=== PATIENT | male | born 1990 | race Caucasian/White ===

== ENCOUNTER 2020-12-04 00:06 | Emergency (ER) | payer BC ==
--- NOTE | 2020-12-04 00:36 | EDM.PDOC ---
ED HPI GENERAL MEDICAL PROBLEM - General Chief Complaint: Chest Pain Stated Complaint: CHEST PAIN AND COUGH Time Seen by Provider: 12/04/20 00:16 Source of Information: Reports: Patient History Limitations: Reports: No Limitations - History of Present Illness INITIAL COMMENTS - FREE TEXT/NARRATIVE: Mr. Newell is a very pleasant 30-year-old gentleman who now presents the ED stat ing that he has had a harsh, nonproductive cough for the past 12 to 15 days, with some associated dyspnea on exertion and slight dyspnea at rest. No recent fever. He then developed left-sided chest pain which he describes as a "nuisance" along with lower back pain, about 12 hours ago. He indicates the pain to be inferior to his left pectoralis muscle. Both pains are constant and he has not identified any modifiers. He has not taken any [id number] or home remedies to address any of his symptoms. Here in the ED, the patient's initial BP is found to be elevated at 167/110, otherwise, he is afebrile, saturating 98% on room air. He appears to be comfortable, in no acute distress. The patient denies having a recent fever, chills, sore throat, ear pain, nasal or sinus congestion, palpitations, nausea, vomiting, constipation, diarrhea, abdominal pain, urinary symptoms, recent weight gain or weight loss, recent bloody bowel movements or black bowel movements, recent joint aches, headaches, or rashes. The patient does not have a PCP. He has received 2 COVID vaccinations. - Related Data Allergies Allergy/AdvReac Type Severity Reaction Status Date / Time latex Allergy Hives Verified 12/04/20 00:36 Home Meds: Home Meds Orphenadrine [Norflex] 1 tab PO Q12H PRN #14 tab.er 12/04/20 [Rx] Sertraline HCl [Zoloft] 100 mg PO DAILY 12/04/20 [History] Past Medical History Cardiovascular History: Reports: High Cholesterol (untreated) Psychiatric History: Reports: Anxiety - Past Surgical History HEENT Surgical History: Reports: Oral Surgery (dental extractions) Social & Family History - Tobacco Use Tobacco Use Status *Q: Never Tobacco User - Alcohol Use Alcohol Use History: Yes Alcohol Use Frequency: Socially (occasionally to excess) - Recreational Drug Use Recreational Drug Use: No - Living Situation & Occupation Living situation: Reports: Single, Alone 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 ED EXAM, GENERAL - Physical Exam Exam: See Below Exam Limited By: No Limitations General Appearance: Alert, WD/WN, No Apparent Distress Eye Exam: Bilateral Eye: EOMI, Normal Inspection Ears: Normal External Exam, Hearing Grossly Normal Nose: Normal Inspection Throat/Mouth: Normal Inspection, Normal Lips, Normal Voice, No Airway Compromise Head: Atraumatic, Normocephalic Neck: Normal Inspection, Full Range of Motion Respiratory/Chest: No Respiratory Distress, Lungs Clear, Normal Breath Sounds, No Accessory Muscle Use, Other (Reproducible tenderness to palpation of the left anterolateral ribs inferior to the left pectoralis muscle). No: Decreased Breath Sounds, Crackles, Rhonchi, Wheezing, Stridor, Pleural Rub, Prolonged Expiration Cardiovascular: Normal Peripheral Pulses, Regular Rate, Rhythm, No Edema, No Gallop, No JVD, No Murmur, No Rub Peripheral Pulses: 3+: Radial (L), Radial (R) GI/Abdominal: Normal Bowel Sounds, Soft, No Organomegaly, No Distention, No Abnormal Bruit, No Mass, Tender (Minimal, epigastric only. Nontender elsewhere.) Back Exam: Normal Inspection, Full Range of Motion, NT Extremities: Normal Inspection, Normal Range of Motion, No Pedal Edema, Normal Capillary Refill Neurological: Alert, Oriented, Normal Cognition, No Motor/Sensory Deficits Psychiatric: Normal Affect Skin Exam: Warm, Dry, Intact, Normal Color, No Rash #1 Interpretation EKG Date: 12/04/20 Time: 00:18 Rhythm: NSR Rate (Beats/Min): 77 [place]: Normal P-Wave: Present QRS: Other (Late transition) ST-T: Normal QT: Normal Comparison: NA - No Prior EKG Course - Vital Signs Last Recorded V/S: Last Vital Signs Temp 36.3 C 12/04/20 00:13 Pulse 84 12/04/20 00:13 Resp 19 12/04/20 00:13 BP 167/110 H 12/04/20 00:13 Pulse Ox 98 12/04/20 00:13 - Orders/Labs/Meds Orders: Active Orders 24 hr Category Date Time Status Chest 2V [CR] Stat Exams 12/04/20 00:31 Taken Labs: Laboratory Tests 12/04/20 12/04/20 12/04/20 Range/Units 00:36 00:44 00:44 WBC 12.13 H (4.23-9.07) K/mm3 RBC 4.98 (4.63-6.08) M/mm3 Hgb 17 (13.7-17.5) gm/dl Hct 45.4 (40.1-51.0) % MCV 91.2 (79.0-92.2) fl MCH 34.1 H (25.7-32.2) pg MCHC 37.4 H (32.2-35.5) g/dl RDW Std Deviation 39.0 (35.1-43.9) fL Plt Count 315 (163-337) K/mm3 MPV 9.2 L (9.4-12.3) fl Neutrophils % (Manual) 60 (40-60) % Band Neutrophils % 0 (0-10) % Lymphocytes % (Manual) 32 (20-40) % Atypical Lymphs % 0 % Monocytes % (Manual) 8 (2-10) % Eosinophils % (Manual) 0 L (0.8-7.0) % Basophils % (Manual) 0 L (0.2-1.2) Platelet Estimate Adequate RBC Morph Comment Normal D-Dimer, Quantitative (0.19-0.50) mg/L Sodium 138 (136-145) mEq/L Potassium 3.7 (3.5-5.1) mEq/L Chloride 100 (98-107) mEq/L Carbon Dioxide 25 (21-32) mEq/L Anion Gap 16.7 H (5-15) BUN 10 (7-18) mg/dL Creatinine 1.1 (0.7-1.3) mg/dL Est Cr Clr Drug Dosing 100.47 mL/min Estimated GFR (MDRD) > 60 (>60) mL/min BUN/Creatinine Ratio 9.1 L (14-18) Glucose 113 H (70-99) mg/dL Calcium 9.7 (8.5-10.1) mg/dL Total Bilirubin 0.8 (0.2-1.0) mg/dL AST 52 H (15-37) U/L ALT 97 H (16-63) U/L Alkaline Phosphatase 82 (46-116) U/L Troponin I < 0.017 (0.00-0.056) ng/mL C-Reactive Protein <0.2 (<1.0) mg/dL Total Protein 8.5 H (6.4-8.2) g/dl Albumin 4.6 (3.4-5.0) g/dl Globulin 3.9 gm/dL Albumin/Globulin Ratio 1.2 (1-2) Lipase 44 L (73-393) U/L SARS-CoV-2 RNA (VALDEZ) Negative (NEGATIVE) 12/04/20 Range/Units 00:44 WBC (4.23-9.07) K/mm3 RBC (4.63-6.08) M/mm3 Hgb (13.7-17.5) gm/dl Hct (40.1-51.0) % MCV (79.0-92.2) fl MCH (25.7-32.2) pg MCHC (32.2-35.5) g/dl RDW Std Deviation (35.1-43.9) fL Plt Count (163-337) K/mm3 MPV (9.4-12.3) fl Neutrophils % (Manual) (40-60) % Band Neutrophils % (0-10) % Lymphocytes % (Manual) (20-40) % Atypical Lymphs % % Monocytes % (Manual) (2-10) % Eosinophils % (Manual) (0.8-7.0) % Basophils % (Manual) (0.2-1.2) Platelet Estimate RBC Morph Comment D-Dimer, Quantitative 0.90 H (0.19-0.50) mg/L Sodium (136-145) mEq/L Potassium (3.5-5.1) mEq/L Chloride (98-107) mEq/L Carbon Dioxide (21-32) mEq/L Anion Gap (5-15) BUN (7-18) mg/dL Creatinine (0.7-1.3) mg/dL Est Cr Clr Drug Dosing mL/min Estimated GFR (MDRD) (>60) mL/min BUN/Creatinine Ratio (14-18) Glucose (70-99) mg/dL Calcium (8.5-10.1) mg/dL Total Bilirubin (0.2-1.0) mg/dL AST (15-37) U/L ALT (16-63) U/L Alkaline Phosphatase (46-116) U/L Troponin I (0.00-0.056) ng/mL C-Reactive Protein (<1.0) mg/dL Total Protein (6.4-8.2) g/dl Albumin (3.4-5.0) g/dl Globulin gm/dL Albumin/Globulin Ratio (1-2) Lipase (73-393) U/L SARS-CoV-2 RNA (VALDEZ) (NEGATIVE) Meds: Medications Discontinued Medications Generic Name Dose Route Start Last Admin Trade Name Aleksey PRN Reason Stop Dose Admin Ibuprofen 600 mg 12/04/20 01:43 12/04/20 01:55 Ibuprofen 600 Mg Tab PO 12/04/20 01:44 600 mg ONETIME ONE Administration Orphenadrine Citrate 100 mg 12/04/20 01:43 12/04/20 01:54 Orphenadrine 100 Mg Tab.Er PO 12/04/20 01:44 100 mg ONETIME STA Administration - Re-Assessments/Exams Free Text/Narrative Re-Assessment/Exam: 12/04/20 00:33 As above, the patient has had 12 to 15 days of a nonproductive cough, along with dyspnea on exertion and slight dyspnea at rest, then 12 hours of "nuisance" discomfort felt under his left pectoralis muscle, and lower back pain. No recent fever. The pain felt under his left pectoralis muscle is sometimes made worse when he coughs, and is reproducible on examination, otherwise, his physical exam is unremarkable. An ECG, obtained at triage, shows no ischemic changes. I have ordered a work-up that includes several blood tests, a swab for the SARS-CoV-2 virus, and a chest x-ray. 12/04/20 01:36 Two-view chest radiograph appears to be grossly normal. The cardiac silhouette is within normal limits. No pulmonary vascular congestion. No pleural effusions. No focal infiltrate. No pneumothorax. Formal read per the Radiologist pending. The patient's CBC is remarkable for mild leukocytosis of 12.13, but with 0% bandemia, and the remainder of his CBC being unremarkable. His CMP is remarkable for slight hyperglycemia of 113, and an AST/ALT slightly elevated at 52/97, respectively, and the remainder of his CMP being unremarkable. His lipase level is within normal limits at 44. His CRP is undetectably low. His troponin is undetectably low. His D-dimer is mildly elevated at 0.90. His swab for the SARS-CoV-2 virus is negative. 12/04/20 01:43 Test results discussed with the patient. As above, today's work-up is grossly unremarkable. We discussed his mildly elevated D-dimer, but, in my opinion, this mild elevation is not consistent with a pulmonary embolus. A CT angiogram of the chest was offered, but declined. I suspect that the patient's pain is musculoskeletal in etiology, most likely due to a spasm of some intercostal muscles due to his coughing. I recommended treatment with Norflex and ibuprofen. The patient agreed. We will start him on it here, and I will submit a prescription for Norflex to the pharmacy of his choice. If his symptoms fail to improve over the next few days, I would like him to follow-up in the clinic, at which time his hypercholesterolemia can be addressed, as well. Departure - Departure Time of Disposition: 01:44 Disposition: Home, Self-Care 01 Condition: Good Clinical Impression: Intercostal muscle pain - Discharge Information *PRESCRIPTION DRUG MONITORING PROGRAM REVIEWED*: Not Applicable *COPY OF PRESCRIPTION DRUG MONITORING REPORT IN PATIENT CHRISTELLE: Not Applicable Prescriptions: Orphenadrine [Norflex] 1 tab PO Q12H PRN #14 tab.er PRN Reason: Muscle Spasm - Painful Instructions: Musculoskeletal Pain Referrals: PCP,Shoaib [Primary Care Provider] - Catherine Richey NP [Nurse Practitioner] - Forms: ED Department Discharge Additional Instructions: You were seen in the emergency room for left-sided chest pain and lower back pain in the setting of 2 weeks of a dry cough. Work-up in the ER included numerous blood tests, a swab for the SARS-CoV-2 virus, a chest x-ray, and an ECG. Your entire work-up was unremarkable, with the exception of a mildly elevated D- dimer. You do not have pneumonia or a collapsed lung. You have not had a heart attack. A CT angiogram of your chest to rule out a blood clot in your lungs was offered, but declined. Based on your history, physical exam, and ER tests, the cause of your left-sided chest pain and lower back pain is most likely due to a muscle spasm. You have been started on the muscle relaxant Norflex, and a prescription for Norflex has been sent to the [facility], located just south and across the [address] from [facility]. Take 1 tablet of Norflex every 12 hours, starting this afternoon, 12/04/2020, as prescribed. Norflex works well with ibuprofen. We recommend that you take 3 tablets (600 mg) of [id number] ibuprofen every 8 hours, with food, [id number] initially, then as needed for discomfort. If your symptoms persist beyond a few days, we recommend that you follow-up with Catherine Richey NP, or one of the other providers in the clinic, for further evaluation. You can also establish a PCP, who can check on your elevated cholesterol. If any other problems, please do not hesitate to return to the ER. Sepsis Event Note (ED) - Evaluation Sepsis Screening Result: No Definite Risk - Focused Exam Vital Signs: Vital Signs Temp Pulse Resp BP Pulse Ox 12/04/20 00:13 36.3 C 84 19 167/110 H 98 - My Orders Last 24 Hours: My Active Orders 12/04/20 00:31 Chest 2V [CR] Stat - Assessment/Plan Last 24 Hours: My Active Orders 12/04/20 00:31 Chest 2V [CR] Stat
[2020-12-04] MEDS ORDERED: Orphenadrine 100 MG Tab.ER PO STA (01:43)
[2020-12-04] MEDS ORDERED: Ibuprofen 600 MG Tab PO ONE (01:43)
--- NOTE | 2020-12-04 07:42 | CR ---
Chest: 2 views of the chest were obtained. Comparison: No prior chest imaging is available. Heart size and mediastinum are normal. Lungs are clear with no acute parenchymal change. Slight scoliosis is noted within the spine. No acute osseous abnormality is appreciated. Impression: 1. Nothing acute is seen on 2 view chest x-ray. Diagnostic code #2
== END 2020-12-04 02:00 | disposition home or self-care (01) ==
LOC: JD.ED 00:06
DX: R07.82 Intercostal pain (principal); Z91.040 Latex allergy status; Z20.822 Contact with and (suspected) exposure to COVID-19
CPT/HCPCS: 36415; 71046; 80053; 83690; 84484; 85007; 85027; 85379; 86140; 87635; 93005; 99285; A9270; 99284; U0002